=== PATIENT | male | born 1965 | race Caucasian/White ===

== ENCOUNTER 2017-03-06 20:44 | Inpatient (IN) | payer MEDICARE ==
[2017-03-06 21:23] LABS: #Eosinphils 0.2 thou/uL (0.0-0.7); #Lymphocytes 1.5 thou/uL (1.20-3.40); #Monocytes 0.5 thou/uL (0.11-0.59); %Basophils 0.5 % (0.0-1.0); %Eosinophils 2.6 % (0.0-10.0); %Lymphocytes 20.8 % (21.0-51.0); %Monocytes 7.4 % (0.0-10.0); %Neutrophils 68.6 % (42.0-75.0); Hemoglobin 15.2 g/dL (14.0-18.0); Mean Corpuscular HGB CONC 31.7 g/dL (32.0-36.0); Mean Corpuscular Hemoglobin 28.3 pg (27.0-31.0); Mean Corpuscular Volume 89.3 fl (80.0-94.0); Mean Platelet Volume 8.5 fL (7.4-10.4); Platelet Count 216 thou/uL (130-400); RBC Distribution Width 14.9 % (11.5-14.5); Red Blood Cell (RBC) Count 5.37 mill/uL (4.70-6.10); White Blood Cell (WBC) Count 7.3 thou/uL (4.8-10.8)
[2017-03-06] MEDS ORDERED: Haloperidol Lactate 5 MG/ML VIAL ONE (21:35)
[2017-03-06] MEDS ORDERED: diphenhydrAMINE 50 MG/ML VIAL ONE (21:35)
[2017-03-06 21:45] LABS: Acetaminophen Less than 6.0 mcg/mL (10.0-30.0); Alcohol Less than 10 mg/dL (Less than 10); CK (CPK) 2882 U/L (30-200); Salicylate Less than 8.0 mg/dL (15.0-30.0)
[2017-03-06 21:46] LABS: ALT (SGPT) 49 U/L (8-55); AST (SGOT) 80 U/L (5-34); Alkaline Phosphatase 69 U/L (40-150); Anion Gap 15 mmol/L (10-20); BUN (Urea Nitrogen) 20 mg/dL (8.9-20.6); Bilirubin, Total 0.7 mg/dL (0.2-1.2); Calc. Creatinine Clearance 0 mL/min (70-130); Calcium 9.6 mg/dL (7.8-10.44); Carbon Dioxide 23 mmol/L (22-29); Chloride 107 mmol/L (98-107); Estimated GFR-MDRD Greater than 90; Glucose 82 mg/dL (70-105); Potassium 3.6 mmol/L (3.5-5.1); Sodium 141 mmol/L (136-145)
[2017-03-07 01:03] LABS: Bilirubin Negative (Negative); Blood, Urine Negative (Negative); Clarity CLEAR (Clear); Glucose, Urine (Dipstick) Negative (Negative); Leukocyte Negative (Negative); Nitrite Negative (Negative); Protein, Urine (Dipstick) Negative (Neg-Trace); Specific Gravity, Urine 1.029 (1.002-1.036); Urobilinogen 0.2 mg/dL (0.2-1.0); pH, Urine 5.5 (5.0-9.0)
[2017-03-07 01:23] LABS: Amphetamine Not Detected (NotDetected); Barbiturates Screen Not Detected (NotDetected); Benzodiazepine Screen Detected (NotDetected); Cocaine Metabolite Screen Not Detected (NotDetected); Medtox Control Line Valid? VALID (VALID); Medtox Reader # READER 1; Methadone Not Detected (NotDetected); Methamphetamine Not Detected (NotDetected); Opiate Screen Not Detected (NotDetected); Oxycodone Screen Not Detected (NotDetected); Phencyclidine (PCP) Not Detected (NotDetected); THC/Cannabinoid Screen Detected (NotDetected); Tricyclic Screen Detected (NotDetected)
--- NOTE | 2017-03-07 04:57 | HP-2 ---
DATE OF ADMISSION: 03/07/2017. CODE STATUS: Full. PRIMARY CARE PHYSICIAN: None. ATTENDING: Dr. John Looney RESIDENT: Dr. Price Nettles, PGY-1. CHIEF COMPLAINT: Klonopin overdose. HISTORY OF PRESENT ILLNESS: This is a 51-year-old male that took a 60 2 mg tablets of Klon opin around 1300 yesterday afternoon. It should be reported that the patient was a little bit of a p oor historian when we saw him. He reported that he took the Klonopin because he just wanted to go to sleep. He said that he had not been to sleep for the last 6 days. Denied any racing thoughts, mary c thoughts, extravagant thoughts. He said that his brought him to the ER around 7:00 and was do ing fine. Denied any muscle aches, joint pain. Denied any fevers, chills or any symptoms at this ti me, reported maybe a little bit trouble urinating since he had gotten to the ER. When we talked to janessa vann, he reported having some suicidal attempts in the past, but did not remember when they were. We janessa shirley talked to the ER doctor he reported previous suicidal ideation and suicide attempts. He told the E R doctors when he took this Klonopin he wanted to go to sleep and never wake up. Reported his last s uicidal attempt was in November, but was not taken to the hospital for that. Reports buying a gun and going to a field to kill himself, but then went to a motel room instead and did not go through with it. To be noted too, when he was in the ER, he had an interaction with the ER doctor, he has a histo ry of bipolar and got very agitated. He was arguing with the doctor and required chemical sedation w ith Haldol and Benadryl to decrease the risks to himself and others. REVIEW OF SYSTEMS: All review of systems not listed in the HPI are otherwise negative at this time. PAST MEDICAL HISTORY: Bipolar disorder. PAST SURGICAL HISTORY: Bariatric surgery, gastric sleeve. ALLERGIES: PENICILLIN causing a rash. MEDICATIONS: 1. Seroquel 300 mg at bedtime. 2. Cymbalta 90 mg at bedtime. 3. Klonopin 4 mg at bedtime. FAMILY HISTORY: Insignificant. SOCIAL HISTORY: Tobacco, never a smoker. Alcohol, never. Drugs, did admit to smoking marijuana occ asionally. PHYSICAL EXAMINATION: VITAL SIGNS: Blood pressure was 149/95, pulse is 91, respirations 18, temperature 98.5, pulse ox 94% on room air, current weight 74.39 kilograms. GENERAL: He is alert and oriented x3, well-developed, well-nourished, appropriately interactive. HEENT: Eyes; conjunctivae within normal limits. Oropharynx within normal limits. NECK: Supple, no lymphadenopathy, no thyromegaly. CARDIOVASCULAR: Regular rhythm, no murmur, no gallops. Radial pulses, pedal pulse palpated bilatera lly. RESPIRATORY: Normal breathing effort. No retractions. LUNGS: Clear to auscultation bilaterally. SKIN: Warm, dry. ABDOMEN: Soft, nontender to palpation. Bowel sounds are in all 4 quadrants. No masses or distentio n. MUSCULOSKELETAL: Structure within normal limit. Tone within normal limits. Full range of motion. No pain on palpation of muscular structures. NEUROLOGIC: No focal neuro deficit. PSYCHIATRIC: The patient is just a little bit, did not answer questions to his fullest. LABORATORY DATA: White blood cell count 7.3, hemoglobin 15.2, hematocrit 47.9, MCV 89.3, platelets 2 16. Sodium 141, potassium 3.6, chloride 107, CO2 23, BUN 20, creatinine 0.86, glucose 82, calcium 9. 6, total protein 7.0, albumin 4.0, total bilirubin 0.7, AST 80, ALT 49, alkaline phosphatase 69. Uri ne drug screen was positive for THC, benzos and tricyclics. Acetaminophen was less than 6, salicylat es was less than 8 and TSH was 1.2062. UA was negative and his initial CK was 2882. A repeat CK was 3998. ASSESSMENT AND PLAN: This is a 51-year-old male with past suicidal ideation who came in with apparen t drug overdose. 1. Rhabdomyolysis secondary to a drug overdose. We will put him on aggressive fluids, normal saline at a rate of 250. We will recheck a.m. BMP to check his creatinine and recheck in a.m. CMP, check h is creatinine and his AST was a little elevated just to recheck that as well. We also check a repeat CK at 7:00 this morning. Continue with aggressive fluids and will monitor him as needed, he is curr ently not having any pain, having just a little bit of trouble peeing. 2. Drug abuse, took an overdose of Klonopin. UDS was positive for cannabinoids and tricyclics. He denied that he had taken any tricyclics in the past. We will juvenile counselor him on risks of illicit drug us e. 3. Suicidal ideation. He had a drug overdose of Klonopin reporting that he wanted to go to sleep an d never wake up. We will need to consult MR once medically cleared from the rhabdomyolysis. 4. Deep venous thrombosis prophylaxis. We will put him on SCDs for now.
[2017-03-07] MEDS ORDERED: Calcium Carbonate 500 MG ChewTAB PO PRN (07:41)
[2017-03-07] MEDS ORDERED: Acetaminophen 325 MG TAB PO PRN (07:41)
[2017-03-07] MEDS ORDERED: Ondansetron ODT 4 MG TAB PO PRN (07:41)
[2017-03-07] MEDS ORDERED: Ondansetron HCl/PF 4 MG/2 ML Vial IVP PRN (07:41)
[2017-03-07] MEDS ORDERED: Acetaminophen 650 MG Suppository PR PRN (07:41)
[2017-03-07 07:49] VITALS: BMI 23.5
[2017-03-07] MEDS: Sodium Chloride 0.9% 1,000 ML IV SCH ×4 (08:30→22:51)
--- NOTE | 2017-03-07 11:46 | HP ---
CHIEF COMPLAINT: Klonopin overdose. HISTORY OF PRESENT ILLNESS: Mr. Nascimento is a 51-year-old white male patient, who is followed at [facility] . He states that he took around 62 mg tablets of Klonopin yesterday afternoon at around 1:00. He st ated that he wanted to "go to sleep and not wake up." He presented to the emergency room and was sub sequently admitted for further treatment and evaluation. At the time of my exam, Mr. Nascimento was awake, alert, in no distress. PHYSICAL EXAMINATION: VITAL SIGNS: His blood pressure is 140/87, his pulse rate is 87, respirations are 16 and not labored . He is afebrile. His room air pulse ox is 94%. GENERAL: As stated, he is alert, oriented, does not appear overtly depressed or anxious. EARS, NOSE , AND THROAT: Extraocular movements are normal. There is no scleral icterus. NECK: Supple. No adenopathy. CARDIOVASCULAR EXAM: The PMI is in the fifth intercostal space at the midclavicular line. There are no gallops or murmurs noted. LUNGS: Clear to auscultation without rales or wheezes. ABDOMEN: Flat and soft. No guarding, rebound, or rigidity. MUSCULOSKELETAL EXAM: He denies any muscle tenderness and he moves all extremities without difficult y. NEUROLOGIC: He demonstrates no focal deficits. LABORATORY DATA: CBC: White count is 7300, hemoglobin is 15.2, hematocrit is 47.9 with an MCV of 89 . Chemistries: Sodium is 141, potassium 3.6, chloride 107, bicarbonate 23, BUN 20, creatinine 0.86. His initial creatinine kinase was 2882, it meka to 3998, and is now 3718. His AST is slightly elev ated at 80. Urine toxicology, tricyclics are detected, benzos are detected, and cannabinoids are detected. ASSESSMENT: Delivered overdose of Klonopin, possible suicidal ideation. PLAN: Admit, observe. Currently, the patient is hemodynamically stable. There is really not any in dication for anecdotal intervention. We will continue to monitor him and consult with [facility].
[2017-03-07] MEDS ORDERED: FLU VACC QS2017-18 36 mo. & older 0.5 ML SYRINGE IM ONE (12:00)
[2017-03-07] MEDS: Haloperidol Lactate 5 MG/ML VIAL IM PRN ×2 (14:35→21:00)
[2017-03-07] MEDS ORDERED: Sodium Chloride 0.9% 1,000 ML IV SCH (15:15)
[2017-03-07] MEDS ORDERED: QUEtiapine Fumarate ER 150 MG TAB PO SCH (21:00)
[2017-03-07] MEDS ORDERED: DULoxetine 60 MG CAP PO SCH (21:24)
[2017-03-07] MEDS ORDERED: DULoxetine 30 MG CAP PO SCH ×2 (21:24→21:45)
[2017-03-08 04:56] LABS: #Eosinphils 0.2 thou/uL (0.0-0.7); #Lymphocytes 1.7 thou/uL (1.20-3.40); #Monocytes 0.5 thou/uL (0.11-0.59); #Neutrophils 2.7 thou/uL (1.40-6.50); %Basophils 0.9 % (0.0-1.0); %Eosinophils 4.5 % (0.0-10.0); %Lymphocytes 32.7 % (21.0-51.0); %Monocytes 9.4 % (0.0-10.0); %Neutrophils 52.4 % (42.0-75.0); Hemoglobin 12.2 g/dL (14.0-18.0); Mean Corpuscular HGB CONC 31.6 g/dL (32.0-36.0); Mean Corpuscular Hemoglobin 28.5 pg (27.0-31.0); Mean Corpuscular Volume 90.1 fl (80.0-94.0); Mean Platelet Volume 8.7 fL (7.4-10.4); Platelet Count 159 thou/uL (130-400); RBC Distribution Width 14.7 % (11.5-14.5); Red Blood Cell (RBC) Count 4.28 mill/uL (4.70-6.10); White Blood Cell (WBC) Count 5.2 thou/uL (4.8-10.8)
[2017-03-08] MEDS: Sodium Chloride 0.9% 1,000 ML IV SCH ×6 (05:14→23:25)
[2017-03-08 05:17] LABS: ALT (SGPT) 41 U/L (8-55); AST (SGOT) 85 U/L (5-34); Albumin 3.1 g/dL (3.5-5.0); Alkaline Phosphatase 58 U/L (40-150); Anion Gap 9 mmol/L (10-20); BUN (Urea Nitrogen) 8 mg/dL (8.9-20.6); Bilirubin, Total 0.6 mg/dL (0.2-1.2); CK (CPK) 2431 U/L (30-200); Calc. Creatinine Clearance 132 mL/min (70-130); Calcium 7.9 mg/dL (7.8-10.44); Carbon Dioxide 22 mmol/L (22-29); Chloride 114 mmol/L (98-107); Estimated GFR-MDRD Greater than 90; Globulin 2.1 g/dL (2.4-3.5); Glucose 73 mg/dL (70-105); Potassium 3.7 mmol/L (3.5-5.1); Protein, Total 5.2 g/dL (6.0-8.3); Sodium 141 mmol/L (136-145)
[2017-03-08] MEDS: DULoxetine 30 MG CAP PO SCH (08:39)
--- NOTE | 2017-03-08 09:11 | PDOC.FM ---
- Subjective Subjective: No acute events overnight. Pt denies any cp, sob, nvdc. Denies dark colored urine. Maintaining good UOP. - Objective Vital Signs & Weight: Vital Signs (12 hours) Temp Pulse Resp BP Pulse Ox 03/08/17 08:00 98.7 F 66 16 03/08/17 07:50 98.7 F 66 16 124/83 96 03/08/17 04:00 99.6 F 64 20 112/73 96 Weight Weight 74.389 kg I&O: 03/07/17 03/08/17 03/09/17 06:59 06:59 06:59 Intake Total 6350 Output Total 4000 Balance 2350 Result Diagrams: 03/08/17 03:51 03/08/17 03:51 Phys Exam - Physical Examination Constitutional: NAD HEENT: PERRLA, sclera anicteric Neck: no nodes, no JVD Respiratory: no wheezing, no rales, no rhonchi, clear to auscultation bilateral Cardiovascular: RRR, no significant murmur, no rub Gastrointestinal: soft, non-tender, no distention, positive bowel sounds Musculoskeletal: no edema, pulses present Neurological: non-focal, moves all 4 limbs Skin: no rash Dx/Plan (1) Rhabdomyolysis Code(s): M62.82 - RHABDOMYOLYSIS Status: Acute (2) Suicide attempt Status: Acute (3) Bipolar disorder Code(s): F31.9 - BIPOLAR DISORDER, UNSPECIFIED Status: Acute - Plan Plan: ck trending down. Good UOP over first 24 hours. Monitor Is Os per routine, no need for strict IsOs bipolar: home medications Suicide attempt: consult mr for placement following rhabdo resolution. Sitter in place.
[2017-03-08] MEDS ORDERED: Sodium Chloride 0.9% 1,000 ML IV SCH (10:00)
--- NOTE | 2017-03-08 15:21 | ADD-PRG ---
DATE OF SERVICE: 03/08/2017 Please add this is an addendum to the note of Dr. Vladimir Mckeon Mr. Nascimento is resting quietly in bed. His vital signs are stable. His CPK has dropped to 2400. Re nal function has remained normal. For now, we are continuing IV fluid infusion and anticipation of r eduction in the CPK less than 1000, at which time we will consult [facility].
[2017-03-08] MEDS: Haloperidol Lactate 5 MG/ML VIAL IM PRN (21:57)
[2017-03-09] MEDS: Sodium Chloride 0.9% 1,000 ML IV SCH ×4 (03:40→21:30)
[2017-03-09 05:29] LABS: Anion Gap 8 mmol/L (10-20); BUN (Urea Nitrogen) 6 mg/dL (8.9-20.6); CK (CPK) 1732 U/L (30-200); Calc. Creatinine Clearance 134 mL/min (70-130); Calcium 8.1 mg/dL (7.8-10.44); Carbon Dioxide 25 mmol/L (22-29); Chloride 110 mmol/L (98-107); Estimated GFR-MDRD Greater than 90; Glucose 83 mg/dL (70-105); Potassium 3.7 mmol/L (3.5-5.1); Sodium 139 mmol/L (136-145)
[2017-03-09] MEDS: DULoxetine 30 MG CAP PO SCH (08:17)
--- NOTE | 2017-03-09 09:11 | PDOC.FM ---
- Subjective Subjective: No acute events overnight. Pt reports he is doing well and wishes to go home, but given suicide attempts and SI will medically stabilize and consult [facility]. - Objective Vital Signs & Weight: Vital Signs (12 hours) Temp Pulse Resp BP Pulse Ox 03/09/17 08:07 97.1 F L 68 16 111/70 98 03/09/17 07:05 99.1 F 78 16 Weight Weight 74.389 kg I&O: 03/08/17 03/09/17 03/10/17 06:59 06:59 06:59 Intake Total 6350 3250 Output Total 4000 Balance 2350 3250 Result Diagrams: 03/08/17 03:51 03/09/17 04:47 Phys Exam - Physical Examination Constitutional: NAD HEENT: PERRLA, sclera anicteric Neck: no nodes, no JVD Respiratory: no wheezing, no rales, no rhonchi, clear to auscultation bilateral Cardiovascular: RRR, no significant murmur, no rub Gastrointestinal: soft, non-tender, no distention, positive bowel sounds Musculoskeletal: no edema, pulses present Neurological: non-focal, moves all 4 limbs Skin: no rash Dx/Plan (1) Rhabdomyolysis Code(s): M62.82 - RHABDOMYOLYSIS Status: Acute (2) Suicide attempt Status: Acute (3) Bipolar disorder Code(s): F31.9 - BIPOLAR DISORDER, UNSPECIFIED Status: Acute - Plan Plan: CK trended down will continue IV fluids and recheck CK No evidence of BRIAN home medications for bipolar will consult [facility] once ck has trended down <1500
--- NOTE | 2017-03-09 11:56 | ADD-PRG ---
DATE OF SERVICE: 03/09/2017 This is an addendum to the note of Dr. Vladimir Mckeon. Mr. Nascimento is awake, alert, in no distress. His vital signs are stable. His CK has dropped to 1700 . He is having no muscle pain. He did not develop BRIAN. We will consult with [facility] after his CK drop s below 1000. Medically, he should be ready for discharge.
[2017-03-09] MEDS ORDERED: DULoxetine 30 MG CAP PO SCH (21:00)
[2017-03-09] MEDS: Haloperidol Lactate 5 MG/ML VIAL IM PRN (21:30)
[2017-03-10] MEDS: Sodium Chloride 0.9% 1,000 ML IV SCH (05:13)
[2017-03-10 05:49] LABS: Anion Gap 11 mmol/L (10-20); BUN (Urea Nitrogen) 5 mg/dL (8.9-20.6); CK (CPK) 1159 U/L (30-200); Calc. Creatinine Clearance 131 mL/min (70-130); Calcium 8.4 mg/dL (7.8-10.44); Carbon Dioxide 25 mmol/L (22-29); Chloride 110 mmol/L (98-107); Estimated GFR-MDRD Greater than 90; Glucose 76 mg/dL (70-105); Potassium 4.1 mmol/L (3.5-5.1); Sodium 142 mmol/L (136-145)
[2017-03-10] MEDS ORDERED: Sodium Chloride 0.9% 1,000 ML IV SCH (08:15)
[2017-03-10 09:01] VITALS: BP 125/85; TEMP 97.9
--- NOTE | 2017-03-10 11:41 | PDOC.FM ---
- Subjective Subjective: No acute events overnight. Pt ck has trended down appropriately. Was seen by [facility] who recommends inpatient psychiatric care. The pt will be transferred to [facility][note 3]. - Objective Vital Signs & Weight: Vital Signs (12 hours) Temp Pulse Resp BP Pulse Ox 03/10/17 08:00 97.9 F 89 18 125/85 96 Weight Weight 74.389 kg I&O: 03/09/17 03/10/17 03/11/17 06:59 06:59 06:59 Intake Total 3250 Balance 3250 Result Diagrams: 03/08/17 03:51 03/10/17 04:53 Phys Exam - Physical Examination Constitutional: NAD HEENT: PERRLA, moist MMs, sclera anicteric Neck: no nodes, no JVD Respiratory: no wheezing, no rales, no rhonchi, clear to auscultation bilateral Cardiovascular: RRR, no significant murmur, no rub Gastrointestinal: soft, non-tender, no distention, positive bowel sounds Musculoskeletal: no edema, pulses present Neurological: non-focal, normal sensation, moves all 4 limbs Skin: no rash Dx/Plan (1) Rhabdomyolysis Code(s): M62.82 - RHABDOMYOLYSIS Status: Resolved (2) Suicide attempt Status: Acute (3) Bipolar disorder Code(s): F31.9 - BIPOLAR DISORDER, UNSPECIFIED Status: Acute - Plan Plan: Pt rhabdo has resolved, continue IV fluids until transfer to inpatient behavioral health center SI w/ failed prior attempts: inpatient psychiatric treatment, transfer today Pt medically stable, continue home medications and transfer for inpatient psych eval
--- NOTE | 2017-03-10 13:05 | ADD-PRG ---
DATE: 03/10/2017 This is an addendum to the note of Dr. Vladimir Mckeon Mr. Nascimento clinically continues to feel fine. His CK has dropped to 1100. He is being evaluated by [facility] and they recommended transfer to [facility] for further patient care of his psychiatric issue s. Arrangements for transfer are currently being made by [facility] and we appreciate their input.
--- NOTE | 2017-03-12 22:42 | EKG ---
Test Reason : OVERDOSE Blood Pressure : / mmHG Vent. Rate : 089 BPM Atrial Rate : 089 BPM P-R Int : 152 ms QRS Dur : 086 ms QT Int : 360 ms P-R-T Axes : 046 -02 055 degrees QTc Int : 438 ms Normal sinus rhythm Normal ECG Confirmed by LYN GRANT ([id number]), general expeditor DIMAS DOWNEY ([id number]) on 03/12/2017 10:41:11 PM Referred By: LUIS FERNANDO GRANT Confirmed By:LYN GRANT
== END 2017-03-10 17:18 | DRG 918 ==
LOC: ERS 20:44 → ERHOLD 03-07 01:51 → T4-A 03-07 03:06
PROVIDERS: ADMIT Family Medicine; ATTEND Family Medicine
DX: T42.4X2A Poisoning by benzodiazepines, intentional self-harm, initial encounter (principal); M62.82 Rhabdomyolysis; F31.9 Bipolar disorder, unspecified; Z98.84 Bariatric surgery status; F12.10 Cannabis abuse, uncomplicated
CPT/HCPCS: 36415; 36416; 80048; 80053; 80306; 80307; 81003; 82550; 84443; 85025; 93005; A4216; A4353; J1200; J1630

== ENCOUNTER 2020-12-09 06:52 | Outpatient (CLI) | payer MEDICARE | END 2020-12-09 06:53 | disposition home or self-care (01) | LOC: BICULT 06:52 | PROVIDERS: ATTEND Physician Assistant | DX: R74.8 Abnormal levels of other serum enzymes (principal); K80.20 Calculus of gallbladder without cholecystitis without obstruction | CPT/HCPCS: 76705 ==

== ENCOUNTER 2021-02-17 16:14 | Outpatient (CLI) | payer MEDICARE ==
[2021-02-17 17:19] LABS: #Basophils 0.1 10x3/uL (0.0-0.2); #Eosinphils 0.1 10x3/uL (0.0-0.5); #Monocytes 0.5 10x3/uL (0.0-1.1); #Neutrophils 3.7 10x3/uL (1.5-8.4); %Eosinophils 2.2 % (0.0-6.0); %Lymphocytes 29.6 % (18.0-47.0); %Monocytes 7.4 % (0.0-10.0); %Neutrophils 59.6 % (40.0-75.0); Hemoglobin 14.1 g/dL (13.5-17.5); Mean Corpuscular Hemoglobin 28.6 pg (27.0-33.0); Mean Corpuscular Volume 89.5 fl (81.2-95.1); Mean Platelet Volume 10.2 fl (7.4-10.4); Platelet Count 215 10x3/uL (150-450); RBC Distribution Width 14.1 % (11.5-14.5); Red Blood Cell (RBC) Count 4.93 10x6/uL (4.32-5.72); White Blood Cell (WBC) Count 6.2 10x3/uL (3.5-10.5)
[2021-02-17 17:31] LABS: ALT (SGPT) 48 U/L (8-55); AST (SGOT) 46 U/L (5-34); Albumin 4.2 g/dL (3.5-5.0); Alkaline Phosphatase 72 U/L (40-110); Anion Gap 10 mmol/L (10-20); BUN (Urea Nitrogen) 15 mg/dL (8.4-25.7); Bilirubin, Direct 0.2 mg/dL (0.1-0.3); Bilirubin, Total 0.6 mg/dL (0.2-1.2); Calc. Creatinine Clearance 0 mL/min (70-130); Calcium 9.4 mg/dL (7.8-10.44); Carbon Dioxide 30 mmol/L (22-29); Chloride 103 mmol/L (98-107); Globulin 2.9 g/dL (2.4-3.5); Glucose 90 mg/dL (70-105); Potassium 4.2 mmol/L (3.5-5.1); Protein, Total 7.1 g/dL (6.0-8.3); Sodium 139 mmol/L (136-145)
[2021-02-18 12:51] LABS: SARS-CoV-2 PCR by NAA Not Detected (NotDetected)
== END 2021-02-17 16:15 | disposition home or self-care (01) ==
LOC: LABBT 16:14
PROVIDERS: ATTEND Surgery
DX: Z01.818 Encounter for other preprocedural examination (principal); K80.20 Calculus of gallbladder without cholecystitis without obstruction; R79.89 Other specified abnormal findings of blood chemistry; Z20.822 Contact with and (suspected) exposure to COVID-19
CPT/HCPCS: 80053; 80076; 85025; 93005; U0003; U0005; 93010

== ENCOUNTER → 2021-02-20 | Day surgery (SDC) | payer MEDICARE ==
[2021-02-17 11:36] VITALS: BMI 22.6
[~2021-02-20] MED LIST: Bupivacaine 0.25% 10 ML VIAL ONE; Dexamethasone 20 MG/5 ML VIAL ONE; Fentanyl 100 MCG/2 ML VIAL ONE; Fentanyl 250 MCG/5 ML VIAL ONE; Glycopyrrolate 0.2 MG/ML 5 ML SYRINGE ONE; Iothalamate Meglumine 60% 50 ML VIAL FS ONE; Levofloxacin 500 mg/D5W 100 ml Premix Bag ONE; Lidocaine 1% PF 5 ML VIAL ONE; Ondansetron PF 4 MG/2 ML Vial ONE; PROPOFOL 200 MG/20 ML VIAL ONE; Phenylephrine 10 MG/ML VIAL ONE; Rocuronium Bromide 10 MG/ML (10ML VIAL) ONE; Xylocaine 1% w/ Epi 1:100K 10 ML VIAL ONE
== END | disposition home or self-care (01) ==
LOC: SDC 08:03
PROVIDERS: ATTEND Surgery
PROC: 0FT44ZZ Resection of Gallbladder, Percutaneous Endoscopic Approach (ICD-10-PCS; principal; 2021-02-20)
PROC: BF121ZZ Fluoroscopy of Gallbladder using Low Osmolar Contrast (ICD-10-PCS; 2021-02-20)
DX: K80.10 Calculus of gallbladder with chronic cholecystitis without obstruction (principal); E78.00 Pure hypercholesterolemia, unspecified; Z91.51 Personal history of suicidal behavior; Z79.82 Long term (current) use of aspirin; Z79.899 Other long term (current) drug therapy; Z88.0 Allergy status to penicillin
CPT/HCPCS: 47532; 47563; C1713; Q9961; 88304; J1100; J1610; J1956; J2370; J2405; J2704; J3010; S0020

== ENCOUNTER 2022-05-24 13:32 | Outpatient (CLI) | payer OTHER ==
[2022-05-24 15:35] LABS: #Basophils 0.1 10x3/uL (0.0-0.2); #Eosinphils 0.1 10x3/uL (0.0-0.5); #Monocytes 0.6 10x3/uL (0.0-1.1); #Neutrophils 5.4 10x3/uL (1.5-8.4); %Basophils 0.7 % (0.0-2.0); %Neutrophils 70.9 % (40.0-75.0); Hemoglobin 13.2 g/dL (13.5-17.5); Mean Corpuscular HGB CONC 32.4 g/dL (32.0-36.0); Mean Corpuscular Hemoglobin 27.8 pg (27.0-33.0); Mean Corpuscular Volume 86.1 fl (81.2-95.1); Mean Platelet Volume 9.9 fl (7.4-10.4); Platelet Count 257 10x3/uL (150-450); RBC Distribution Width 14.5 % (11.5-14.5); Red Blood Cell (RBC) Count 4.74 10x6/uL (4.32-5.72); White Blood Cell (WBC) Count 7.6 10x3/uL (3.5-10.5)
[2022-05-24 15:42] LABS: INR-International Normal Ratio 0.9; PTT 25.4 sec (22.0-33.0); Prothrombin Time 10.2 sec (9.5-12.1)
[2022-05-24 15:49] LABS: ALT (SGPT) 193 U/L (8-55); AST (SGOT) 169 U/L (5-34); Albumin 3.8 g/dL (3.5-5.0); Alkaline Phosphatase 95 U/L (40-110); Bilirubin, Direct 0.2 mg/dL (0.1-0.3); Bilirubin, Total 0.5 mg/dL (0.2-1.2); Protein, Total 6.9 g/dL (6.0-8.3)
[2022-05-24 15:59] LABS: ALT (SGPT) 193 U/L (8-55); AST (SGOT) 172 U/L (5-34); Albumin 3.8 g/dL (3.5-5.0); Alkaline Phosphatase 96 U/L (40-110); Anion Gap 12 mmol/L (10-20); BUN (Urea Nitrogen) 31 mg/dL (8.4-25.7); Bilirubin, Total 0.4 mg/dL (0.2-1.2); Calc. Creatinine Clearance 0 mL/min (70-130); Carbon Dioxide 26 mmol/L (22-29); Chloride 106 mmol/L (98-107); Estimated GFR 104; Globulin 3.1 g/dL (2.4-3.5); Glucose 59 mg/dL (70-105); Potassium 4.1 mmol/L (3.5-5.1); Protein, Total 6.9 g/dL (6.0-8.3); Sodium 140 mmol/L (136-145)
== END 2022-05-24 13:33 | disposition home or self-care (01) ==
LOC: LABBT 13:32
PROVIDERS: ATTEND Surgery
DX: Z01.818 Encounter for other preprocedural examination (principal); K40.91 Unilateral inguinal hernia, without obstruction or gangrene, recurrent
CPT/HCPCS: 80053; 85025; 85610; 85730; 93005; 93010

== ENCOUNTER 2022-05-26 07:38 | Day surgery (SDC) | payer OTHER ==
[2022-05-26] MEDS ORDERED: Fentanyl 250 MCG/5 ML VIAL ONE (09:09)
[2022-05-26] MEDS ORDERED: SUGAMMADEX SODIUM 200 MG/2 ML VIAL ONE (09:09)
[2022-05-26] MEDS ORDERED: Midazolam HCl 2 mg/2 ml Vial ONE ×2 (10:37→10:44)
[2022-05-26] MEDS ORDERED: Bupivacaine/Epinephrine 0.25% 30 ML VIAL ONE (10:40)
[2022-05-26] MEDS ORDERED: CEFAZOLIN 2 GM VIAL ONE (10:49)
[2022-05-26] MEDS ORDERED: Phenylephrine 10 MG/ML VIAL ONE (10:56)
[2022-05-26] MEDS ORDERED: PROPOFOL 200 MG/20 ML VIAL ONE (10:56)
[2022-05-26] MEDS ORDERED: GLYCOPYRROLATE/PF 0.2 MG/ML VIAL ONE (10:56)
[2022-05-26] MEDS ORDERED: Rocuronium Bromide 10 MG/ML (10ML VIAL) ONE (10:56)
[2022-05-26] MEDS ORDERED: NEOSTIGMINE 3 MG/3 ML SYR 3 MG/3 ML SYRINGE ONE (10:56)
[2022-05-26] MEDS ORDERED: Metoclopramide HCl 10 MG/2 ML VIAL ONE (10:56)
[2022-05-26] MEDS ORDERED: Dexamethasone 20 MG/5 ML VIAL ONE (10:56)
[2022-05-26] MEDS ORDERED: HYDROcodone/Acetaminophen 5/325 mg Tablet ONE (13:12)
== END 2022-05-26 14:02 | disposition home or self-care (01) ==
LOC: SDC 07:38
PROVIDERS: ATTEND Surgery
PROC: 0YUA4JZ Supplement Bilateral Inguinal Region with Synthetic Substitute, Percutaneous Endoscopic Approach (ICD-10-PCS; principal; 2022-05-26)
PROC: 8E0W4CZ Robotic Assisted Procedure of Trunk Region, Percutaneous Endoscopic Approach (ICD-10-PCS; 2022-05-26)
DX: K40.21 Bilateral inguinal hernia, without obstruction or gangrene, recurrent (principal); E78.00 Pure hypercholesterolemia, unspecified; Z91.51 Personal history of suicidal behavior; Z79.82 Long term (current) use of aspirin; Z79.899 Other long term (current) drug therapy; Z88.0 Allergy status to penicillin; Z98.84 Bariatric surgery status
CPT/HCPCS: C1781; J1100; J2250; J2370; J2704; J2765; J3010; J3490

== ENCOUNTER 2022-06-18 09:06 | Outpatient (CLI) | payer OTHER ==
[2022-06-18] MEDS ORDERED: Iopamidol 370 76% 100 ML VIAL ONE (10:55)
== END 2022-06-18 09:07 | disposition home or self-care (01) ==
LOC: BICCT 09:06
PROVIDERS: ATTEND Surgery
DX: R18.8 Other ascites (principal)
CPT/HCPCS: 74177

== ENCOUNTER 2022-06-28 02:08 | Emergency (ER) | payer OTHER ==
[2022-06-28 03:17] LABS: #Basophils 0.1 thou/uL (0.0-0.2); #Eosinphils 0.1 thou/uL (0.0-0.7); #Monocytes 0.5 thou/uL (0.11-0.59); #Neutrophils 3.8 thou/uL (1.40-6.50); %Basophils 0.9 % (0.0-1.0); %Eosinophils 2.6 % (0.0-10.0); %Lymphocytes 17.9 % (21.0-51.0); %Monocytes 9.5 % (0.0-10.0); %Neutrophils 68.7 % (42.0-75.0); Hemoglobin 12.9 g/dL (14.0-18.0); Mean Corpuscular HGB CONC 31.5 g/dL (32.0-36.0); Mean Corpuscular Hemoglobin 27.7 pg (27.0-31.0); Mean Corpuscular Volume 88.2 fl (78.0-98.0); Mean Platelet Volume 9.5 fL (7.4-10.4); Platelet Count 220 10x3/uL (130-400); RBC Distribution Width 15.5 % (11.5-14.5); Red Blood Cell (RBC) Count 4.65 mill/uL (4.70-6.10); White Blood Cell (WBC) Count 5.5 10x3/uL (4.8-10.8)
[2022-06-28 03:40] LABS: ALT (SGPT) 118 U/L (8-55); AST (SGOT) 126 U/L (5-34); Albumin 3.5 g/dL (3.5-5.0); Alkaline Phosphatase 119 U/L (40-110); Anion Gap 11 mmol/L (10-20); BUN (Urea Nitrogen) 18 mg/dL (8.4-25.7); Bilirubin, Total 0.5 mg/dL (0.2-1.2); Calc. Creatinine Clearance 0 mL/min (70-130); Carbon Dioxide 26 mmol/L (22-29); Chloride 104 mmol/L (98-107); Estimated GFR 103; Globulin 3.6 g/dL (2.4-3.5); Glucose 90 mg/dL (70-105); Potassium 3.8 mmol/L (3.5-5.1); Protein, Total 7.1 g/dL (6.0-8.3); Sodium 137 mmol/L (136-145)
[2022-06-28] MEDS ORDERED: Iopamidol-370 76% 500 ML MDV (1 ML CHARGE) ONE (08:52)
== END 2022-06-28 06:10 | disposition home or self-care (01) ==
LOC: ERS 02:08
DX: I97.622 Postprocedural seroma of a circulatory system organ or structure following other procedure (principal); I10 Essential (primary) hypertension; Z79.82 Long term (current) use of aspirin
CPT/HCPCS: 36415; 74177; 80053; 85025; Q9967